=== PATIENT | female | born 1970 | race Caucasian/White ===

== ENCOUNTER 2024-06-10 08:33 | Day surgery (SDC) | payer OTHER ==
[2024-06-10] MEDS ORDERED: BENZOCAINE 20% 0.5mL UD SPRAY MM ONE (09:43)
[2024-06-10] MEDS ORDERED: MEPERIDINE 100 MG INJ. 100 MG/ML VIAL ONE (10:06)
[2024-06-10] MEDS ORDERED: MIDAZOLAM HCL 5 MG/5 ML VIAL ONE (10:06)
[2024-06-10 12:38] VITALS: O2SAT 99
[2024-06-10 12:39] VITALS: TEMP 97
[2024-06-10 16:50] VITALS: BP_SYST 111; PULSE 71; RESP 14
== END 2024-06-10 12:45 | disposition home or self-care (01) ==
LOC: SDS 08:33 → SMU 08:35 → SDS 12:45
PROVIDERS: ATTEND Internal Medicine
DX: R10.12 Left upper quadrant pain (principal); K29.50 Unspecified chronic gastritis without bleeding; K31.A0 Gastric intestinal metaplasia, unspecified; K31.89 Other diseases of stomach and duodenum; E03.9 Hypothyroidism, unspecified; K21.9 Gastro-esophageal reflux disease without esophagitis; Z79.890 Hormone replacement therapy; Z79.899 Other long term (current) drug therapy
CPT/HCPCS: 43239; 88305; 88312; 88313; 99152; G0378; J2250; J2175